=== PATIENT | female | born 1945 | race Caucasian/White ===

== ENCOUNTER 2016-10-27 12:56 | Inpatient (IN) | payer OTHER ==
--- NOTE | ~2016-10-27 | TEE ---
Transesophageal Echocardiogram [address] [place]. [address] NAME: MAE RANGEL : 49 STATUS : ADM IN PAT#: [id number] AGE: 71 ADM/REG DATE : 10/27/16 MR#: [id number] REPORT SERV DATE: 10/30/16 DICTATED BY: PHILL SANTORO DATE: 10/30/16 REPORT STATUS : Draft TRANSCRIBED BY: MODL DATE: 10/30/16 INDICATION: 71-year-old woman with atrial flutter. PROCEDURE: After questions were answered and consents were signed, the patient was sedated with propofol per Anesthesia. The probe was placed in mid esophagus, and images were obtained without difficulty. The patient did have episodes of mild desaturation which was managed carefully by Anesthesia and intermittent coughing. 2D INTERPRETATION: The left ventricular function was grossly normal, although the apex was poorly visualized. The mitral valve leaflets were minimally thickened, but opened adequately. No prolapse was noted. The left atrium was enlarged. There was spontaneous echo contrast in the atrium, but dense spontaneous echo contrast in the left atrial appendage which appeared almost to have a layering down into the apex of the appendage. Clot cannot be excluded. Doppler flows in the left atrial appendage were less than 20 cm/second. The interatrial septum was grossly intact. The right atrium grossly normal, tricuspid valve normal, aortic valve was trileaflet and sclerotic with probable moderate aortic stenosis based on morphology alone. The right-sided chambers were grossly normal. No significant pericardial effusion was noted. COLOR FLOW: Moderate tricuspid and mitral regurgitation with no significant aortic insufficiency. DOPPLER: Doppler flow velocities in left atrial appendage were less than 20 cm/sec. CONCLUSION: 1. DENSE SPONTANEOUS ECHO CONTRAST IN THE LEFT ATRIAL APPENDAGE WITH LAYERING CONCERNING FOR LEFT ATRIAL APPENDAGE THROMBUS. NO CARDIOVERSION PERFORMED. 2. PROBABLE MODERATE AORTIC STENOSIS BASED ON MORPHOLOGY. CONSIDER TRANSTHORACIC ECHO FOR COMPLETE EVALUATION. 3. MODERATE MITRAL AND TRICUSPID REGURGITATION. WO/MODL Phill Santoro M.D., Ph.D, F.A.C.C. / [id number] CC: MD Leonard Ivey M.D.
--- NOTE | ~2016-10-27 | DS ---
Discharge Summary [facility] [address] [place]. [address] NAME: MAE RANGEL : 49 STATUS : DIS IN PAT#: [id number] AGE: 71 ADM/REG DATE : 10/27/16 MR#: [id number] REPORT SERV DATE: 11/08/16 DICTATED BY: KATHRINE LANZA DATE: 11/07/16 REPORT STATUS : Draft TRANSCRIBED BY: MODRowdy DATE: 11/07/16 Data Collection from hospitalization DISCHARGE DIAGNOSIS(ES): 1. Atrial flutter. 2. Cgh-DF-[id number] myocardial infarction. 3. Congestive heart failure. 4. Aortic stenosis. CONSULTATIONS: None. PROCEDURES PERFORMED: 1. Cardiac catheterization, 10/29/2016. 2. Transesophageal echocardiogram, 10/30/2016. MEDICATIONS: Eliquis 5 mg twice daily, Halfprin 81 mg daily, Lipitor 40 mg daily, Lopressor 50 mg twice daily, Effexor XR 75 mg daily. CONDITION AT DISCHARGE: Upon discharge, she did appear to be doing well and had no complaints. DISPOSITION: She had been discharged home to continue an 1800-calorie ADA cardiac diet with activity as discussed. She was to follow up with Dr. Leonard King in two weeks, have an outpatient sleep study as directed, and follow up with myself as directed in two weeks. HOSPITAL COURSE: This 71-year-old female was well known to me. She had been admitted for two days lasting dyspnea with minimal activity and a fluttering sensation in her chest. She denied any chest pain whatsoever. She had some chronic low back pain. She was found to be in SVT, likely atrial flutter with heart rate 150 beats per minute with chronic right bundle branch block. Her troponin was mildly elevated at 0.4. Chest x-ray had shown some fluid overload with BNP elevated to 748. She had received intravenous Lasix in the emergency room, IV Cardizem, and IV heparin. She had been comfortable lying flat in the bed following this. She denied any recent chest pain or palpitation except the last three days' worth syncope. Of note, she had a history of SVT in the past documented on Holter monitor in 2015 when she had rate-related left bundle-branch block with underlying incomplete left bundle- branch block. She was status post four-vessel CABG by Dr. Washington in 04/2016 with right carotid endarterectomy and also 04/[address] Squires. She had some fgfm-qo-rbungsnm aortic valve stenosis, likely bicuspid aortic valve, followed clinically by myself, which was felt to be asymptomatic with EF 60%. She had a remote history of smoking and denied any other symptoms. She denied any lower extremity edema and ambulated without any difficulty. She was admitted for further evaluation and treatment. Upon admission to the hospital, she had been placed on cardiovascular heparin drip. She had also been placed on electrolyte replacement protocol. She was begun on a low sodium 1800-calorie diabetic diet. She was placed on fluid restriction to less than 2 L per day. She was begun on IV Cardizem and heparin in the emergency room as above. She had also been placed on sliding scale insulin level 2. Following the day of admission, she had no complaints of chest pain. Her heart rate had been up to 77, her blood pressure was at 132/60, she was afebrile. On 10/29/2016, she continued to do well and had no complaints of shortness of breath or chest pain Discharge Summary [address] [address] NAME: MAE RANGEL : 47 STATUS : DIS IN PAT#: [id number] AGE: 71 ADM/REG DATE : 10/27/16 MR#: [id number] REPORT SERV DATE: 11/08/16 DICTATED BY: KATHRINE LANZA DATE: 11/07/16 REPORT STATUS : Draft TRANSCRIBED BY: LANNY DATE: 11/07/16 overnight. She was in atrial flutter on telemetry with a 4:1 AV block noted. She did undergo the above cardiac catheterization. She did tolerate this well. She was begun on Eliquis and was to undergo a transesophageal echocardiogram. She had also undergone diabetic education. On 10/30/2016, she did undergo the above transesophageal echocardiogram. She tolerated this well. Her metoprolol was increased to 50 mg twice daily. She did continue to do well and had no new complaints noted. Due to her stable condition, she was then discharged on 10/31/2016 with the above instructions. Information collected by: Jv TinsleyI.T. I submit the above information as my discharge summary. LION/LANNY Kathrine Lanza MD / [id number] CC: MD Leonard Ivey M.D.
--- NOTE | ~2016-10-27 | HP ---
History And Physical [id number] [facility] [place]. [address] NAME: MAE RANGEL : 47 STATUS : ADM IN PAT#: [id number] AGE: 71 ADM/REG DATE : 10/27/16 MR#: [id number] REPORT SERV DATE: 10/27/16 DICTATED BY: LAVERNE VEGA DATE: 10/27/16 REPORT STATUS : Draft TRANSCRIBED BY: MODL DATE: 10/27/16 DATE OF ADMISSION: 10/27/2016 CARDIOLOGY H AND P REFERRING: Erick Roy IV, MD, in the emergency room. REFERRING REASON: SVT with elevated troponin and dyspnea. HISTORY OF PRESENT ILLNESS: This is a pleasant 71 years old white female, well known to Dr. Jose Luis Lanza from [facility], who has been admitted for 2 days lasting dyspnea with minimal activity and fluttering sensation in the chest. She denied any chest pain, whatsoever. She has some chronic low back pain. She was found to be in SVT likely atrial flutter with heart rate 150 beats per minute with chronic right bundle-branch block. Her troponin was mildly elevated at 0.4. The chest x-ray shows some fluid overload with BNP elevated to 748. The patient received intravenous Lasix in the emergency room, IV Cardizem, and IV heparin. She is now comfortable lying flat in the bed. She denied any recent chest pain or palpitation except the last three days or syncope. Of note, she has a history of SVT in the past documented on Holter monitoring in 2015 when she had rate-related left bundle-branch block with underlying incomplete left bundle-branch block. She is status post 4-vessel CABG by Dr. Washington in April 2016 with right carotid endarterectomy in also April [address] Squires. She has some mild to moderate aortic valve stenosis, likely bicuspid aortic valve, followed clinically by Dr. Lanza which was felt to be asymptomatic with EF 60%. She has a remote history of smoking and denied any other symptoms. She denies any lower extremity edema and ambulates without any difficulties. The rest of the review of systems is negative. PAST MEDICAL HISTORY: 1. Coronary artery disease with history of 4-vessel CABG by Dr. Washington in April 2016. 2. Peripheral artery disease with right carotid endarterectomy by Dr. Squires in April 2016. 3. Hypertension. 4. Diabetes mellitus. 5. History of smoking. 6. Mild to moderate aortic valve stenosis, likely a bicuspid aortic valve by echocardiogram in April 2016 with ejection fraction of 60%. 7. History of SVT. 8. Rate dependent left bundle-branch block. ALLERGIES: NO KNOWN DRUG ALLERGIES. SOCIAL HISTORY: The patient is . She lives independently. Quit smoking 8 months ago. Smoked for 40 years, 1 pack a day. Denies drinking alcohol or using street drugs. She is ambulating without any difficulties. History And Physical [address] [address] NAME: MAE RANGEL : 47 STATUS : ADM IN [facility]#: [id number] AGE: 71 ADM/REG DATE : 10/27/16 MR#: [id number] REPORT SERV DATE: 10/27/16 DICTATED BY: LAVERNE VEGA DATE: 10/27/16 REPORT STATUS : Draft TRANSCRIBED BY: LANNY DATE: 10/27/16 FAMILY HISTORY: Negative for sudden cardiac deaths or premature coronary artery disease in the family. PHYSICAL EXAMINATION: GENERAL: No acute distress. VITAL SIGNS: Blood pressure 175/76, heart rate 150, regular. HEENT: Pupils reactive to light and accommodation. Moist mucosa membrane. NECK: No JVD. Normal carotid upstroke. No carotid bruits. LUNGS: Decreased breath sounds observed with occasional crackles at the bases. ABDOMEN: Obese, distended, nontender. CORONARY: Normal S1, S2. No S3 or S4. No significant rub or murmurs. EXTREMITIES: No edema. Pedal pulses strong and equal bilaterally. SKIN: Warm with normal turgor. MUSCULOSKELETAL: No kyphosis. NEURO/PSY: Alert and oriented. Nonfocal. DATA: CBC remarkable for mild leukocytosis 13,000 with left shift. Creatinine 1.5, BUN 22. Nonfasting glucose 169. Troponin 0.41. TSH normal 1.5. BNP 748. Chest x-ray, fluid overload with history of CABG. Electrocardiogram revealed SVT likely atrial flutter with left bundle-branch block morphology, heart rate 151 beats per minute. ASSESSMENT AND PLAN: 1. Fluid overload with likely underlying diastolic dysfunction. 2. SVT likely atrial flutter. 3. Elevated troponin, likely demand ischemia. 4. Coronary artery disease with history of 4-vessel CABG in 2016. 5. Peripheral artery disease, currently stable. 6. History of a documented SVT in the past. 7. Mild to moderate aortic valve stenosis, currently asymptomatic. The patient will be admitted to monitored bed. She is going to be on fluid restriction less than 2 L a day, low-sodium diet, and diabetic diet. We will gently diurese her for kidney function closely. We will continue intravenous heparin and Cardizem. In case that her cardiac enzymes will go up, we may need to consider coronary arteriogram on Saturday. Multiple questions answered. No immediate plan for echocardiogram at the present time. The patient is comfortable now and less likely her presentation represents acute coronary syndrome. ERLIN/LANNY Laverne Vega M.D. / [id number] History And Physical [address] [address] NAME: MAE RANGEL Jacquelyn : 49 STATUS : ADM IN PAT#: [id number] AGE: 71 ADM/REG DATE : 10/27/16 MR#: [id number] REPORT SERV DATE: 10/27/16 DICTATED BY: LAVERNE VEGA DATE: 10/27/16 REPORT STATUS : Draft TRANSCRIBED BY: LANNY DATE: 10/27/16 CC: MD Leonard Ivey M.D.
[2016-10-27 11:40] LABS: BASOPHILS 0.2 %; BASOPHILS ABSOLUTE 0.03 10/3/uL (0.0-0.16); EOSINOPHILS 0.2 %; EOSINOPHILS ABSOLUTE 0.03 10/3/uL (0.0-0.53); IMMATURE GRANULOCYTES 0.3 %; IMMATURE GRANULOCYTES ABSOLUTE 0.04 10/3/uL (0.0-0.11); LYMPHOCYTES 15.8 %; LYMPHOCYTES ABSOLUTE 2.13 10/3/uL (0.67-4.30); MEAN CORPUS HGB CONC 33.2 g/dL (32.0-36.0); MEAN CORPUSCULAR HEMOGLOB 29.8 pg (26.0-34.0); MEAN CORPUSCULAR VOLUME 89.8 fL (80-100); MONOCYTES 4.9 %; MONOCYTES ABSOLUTE 0.66 10/3/uL (0.21-1.20); NEUTROPHILS 78.6 %; PLATELET COUNT 288 10/3/uL (150-400); RBC DISTRIBUTION WIDTH 14.6 % (12.0-16.0); WHITE BLOOD CELLS 13.5 10/3/uL (4.5-10.5)
[2016-10-27 11:43] LABS: HEMATOCRIT 37.1 % (36.0-48.0); HEMOGLOBIN 12.3 g/dL (12.0-16.0); MANUAL DIFF NO %; RED CELL COUNT 4.13 10/6/uL (4.0-5.6)
[2016-10-27 11:47] LABS: INTERNATIONAL NORMAL RATI 1.2 UNITS (-); PROTIME (NOT ORD) 14.9 SEC (12.0-14.5)
[2016-10-27 11:48] LABS: PARTIAL THROMBO TIME 41.3 SEC (22.5-37.2)
[2016-10-27 11:57] LABS: BUN (BLOOD UREA NITROGEN) 22 MG/DL (6-23); CALCIUM, SERUM 9.3 MG/DL (8.5-10.4); CHLORIDE, SERUM 102 MMOL/L (96-112); CO2 (CARBON DIOXIDE) 29 MMOL/L (24-34); CREATININE 1.51 MG/DL (0.55-1.02); GFR AFRICAN AMERICAN 40 ML/MIN (>=60); GFR NON AFRICAN AMERICAN 35 ML/MIN (>=60); GLUCOSE, SERUM 169 MG/DL (60-99); POTASSIUM, SERUM 4.5 MMOL/L (3.5-5.3); SODIUM, SERUM 138 MMOL/L (135-148)
[2016-10-27 11:58] LABS: CHEST PAIN PROFILE TAT 0 Hrs 22 Mins; TROPONIN I 0.41 NG/ML (<0.05)
[~2016-10-27 12:56] MED LIST: ASAB PO; CHANTIX1 PO; EFFEXXR75 PO; GLUCOTROL5 PO; HALF81 PO; LIPITOR40 PO; LOP25 PO; PLAVIX PO; PRIN10 PO; VITC500 PO
[2016-10-28 05:10] LABS: BASOPHILS 0.5 %; BASOPHILS ABSOLUTE 0.05 10/3/uL (0.0-0.16); EOSINOPHILS 3.5 %; EOSINOPHILS ABSOLUTE 0.35 10/3/uL (0.0-0.53); HEMATOCRIT 34.2 % (36.0-48.0); HEMOGLOBIN 11.4 g/dL (12.0-16.0); IMMATURE GRANULOCYTES 0.3 %; IMMATURE GRANULOCYTES ABSOLUTE 0.03 10/3/uL (0.0-0.11); LYMPHOCYTES 33.9 %; LYMPHOCYTES ABSOLUTE 3.39 10/3/uL (0.67-4.30); MEAN CORPUS HGB CONC 33.3 g/dL (32.0-36.0); MEAN CORPUSCULAR HEMOGLOB 29.8 pg (26.0-34.0); MEAN CORPUSCULAR VOLUME 89.3 fL (80-100); MEAN PLATELET VOLUME 10.2 fL (9.2-13.0); NEUTROPHILS 55.8 %; NEUTROPHILS ABSOLUTE 5.58 10/3/uL (2.02-8.40); PLATELET COUNT 266 10/3/uL (150-400); RBC DISTRIBUTION WIDTH 14.6 % (12.0-16.0); RED CELL COUNT 3.83 10/6/uL (4.0-5.6)
[2016-10-28 05:11] LABS: MANUAL DIFF NO %
[2016-10-28 05:20] LABS: BUN (BLOOD UREA NITROGEN) 22 MG/DL (6-23); CALCIUM, SERUM 8.8 MG/DL (8.5-10.4); CHLORIDE, SERUM 105 MMOL/L (96-112); CO2 (CARBON DIOXIDE) 27 MMOL/L (24-34); CREATININE 1.25 MG/DL (0.55-1.02); GFR AFRICAN AMERICAN 51 ML/MIN (>=60); GFR NON AFRICAN AMERICAN 44 ML/MIN (>=60); POTASSIUM, SERUM 3.8 MMOL/L (3.5-5.3); SODIUM, SERUM 141 MMOL/L (135-148)
[2016-10-28 05:23] LABS: GLUCOSE, SERUM 129 MG/DL (60-99); TROPONIN I 0.68 NG/ML (<0.05)
[2016-10-30 04:32] LABS: BASOPHILS 0.5 %; BASOPHILS ABSOLUTE 0.04 10/3/uL (0.0-0.16); EOSINOPHILS 4.5 %; EOSINOPHILS ABSOLUTE 0.39 10/3/uL (0.0-0.53); HEMATOCRIT 33.1 % (36.0-48.0); HEMOGLOBIN 10.8 g/dL (12.0-16.0); IMMATURE GRANULOCYTES 0.2 %; IMMATURE GRANULOCYTES ABSOLUTE 0.02 10/3/uL (0.0-0.11); LYMPHOCYTES 25.1 %; LYMPHOCYTES ABSOLUTE 2.18 10/3/uL (0.67-4.30); MEAN CORPUS HGB CONC 32.6 g/dL (32.0-36.0); MEAN CORPUSCULAR HEMOGLOB 29.4 pg (26.0-34.0); MEAN CORPUSCULAR VOLUME 90.2 fL (80-100); MEAN PLATELET VOLUME 9.6 fL (9.2-13.0); MONOCYTES 5.8 %; NEUTROPHILS 63.9 %; NEUTROPHILS ABSOLUTE 5.54 10/3/uL (2.02-8.40); PLATELET COUNT 292 10/3/uL (150-400); RBC DISTRIBUTION WIDTH 14.4 % (12.0-16.0); RED CELL COUNT 3.67 10/6/uL (4.0-5.6); WHITE BLOOD CELLS 8.7 10/3/uL (4.5-10.5)
[2016-10-30 04:33] LABS: MANUAL DIFF NO %
[2016-10-30 04:41] LABS: BUN (BLOOD UREA NITROGEN) 19 MG/DL (6-23); CALCIUM, SERUM 8.7 MG/DL (8.5-10.4); CHLORIDE, SERUM 108 MMOL/L (96-112); CO2 (CARBON DIOXIDE) 26 MMOL/L (24-34); CREATININE 1.03 MG/DL (0.55-1.02); GFR AFRICAN AMERICAN 64 ML/MIN (>=60); GFR NON AFRICAN AMERICAN 55 ML/MIN (>=60); GLUCOSE, SERUM 119 MG/DL (60-99); POTASSIUM, SERUM 4.3 MMOL/L (3.5-5.3); SODIUM, SERUM 142 MMOL/L (135-148)
[2016-10-31 04:19] LABS: BASOPHILS 0.5 %; BASOPHILS ABSOLUTE 0.04 10/3/uL (0.0-0.16); EOSINOPHILS 4.2 %; EOSINOPHILS ABSOLUTE 0.36 10/3/uL (0.0-0.53); HEMATOCRIT 33.5 % (36.0-48.0); IMMATURE GRANULOCYTES 0.2 %; IMMATURE GRANULOCYTES ABSOLUTE 0.02 10/3/uL (0.0-0.11); LYMPHOCYTES 29.7 %; LYMPHOCYTES ABSOLUTE 2.55 10/3/uL (0.67-4.30); MANUAL DIFF NO %; MEAN CORPUS HGB CONC 32.8 g/dL (32.0-36.0); MEAN CORPUSCULAR HEMOGLOB 29.5 pg (26.0-34.0); MEAN CORPUSCULAR VOLUME 89.8 fL (80-100); MEAN PLATELET VOLUME 9.8 fL (9.2-13.0); MONOCYTES 5.5 %; MONOCYTES ABSOLUTE 0.47 10/3/uL (0.21-1.20); NEUTROPHILS 59.9 %; NEUTROPHILS ABSOLUTE 5.15 10/3/uL (2.02-8.40); PLATELET COUNT 312 10/3/uL (150-400); RBC DISTRIBUTION WIDTH 14.3 % (12.0-16.0); RED CELL COUNT 3.73 10/6/uL (4.0-5.6); WHITE BLOOD CELLS 8.6 10/3/uL (4.5-10.5)
[2016-10-31 04:39] LABS: BUN (BLOOD UREA NITROGEN) 16 MG/DL (6-23); CALCIUM, SERUM 8.9 MG/DL (8.5-10.4); CHLORIDE, SERUM 109 MMOL/L (96-112); CO2 (CARBON DIOXIDE) 29 MMOL/L (24-34); GFR AFRICAN AMERICAN 59 ML/MIN (>=60); GFR NON AFRICAN AMERICAN 51 ML/MIN (>=60); GLUCOSE, SERUM 115 MG/DL (60-99); POTASSIUM, SERUM 4.6 MMOL/L (3.5-5.3); SODIUM, SERUM 142 MMOL/L (135-148)
[2016-10-31] MEDS ORDERED: ELIQUIS 5 MG TAB5 MG PO (18:49)
[2016-10-31] MEDS ORDERED: LOP50 PO (18:50)
== END 2016-10-31 20:32 | disposition home or self-care (01) | DRG 280 ==
LOC: ER 12:56 → 2SO 13:29
PROVIDERS: Emergency Medicine; Internal Medicine Cardiovascular Disease
PROC: 4A023N7 Measurement of Cardiac Sampling and Pressure, Left Heart, Percutaneous Approach (ICD-10-PCS; principal; 2016-10-27)
PROC: B2151ZZ Fluoroscopy of Left Heart using Low Osmolar Contrast (ICD-10-PCS; 2016-10-27)
PROC: B2131ZZ Fluoroscopy of Multiple Coronary Artery Bypass Grafts using Low Osmolar Contrast (ICD-10-PCS; 2016-10-27)
PROC: B2181ZZ Fluoroscopy of Left Internal Mammary Bypass Graft using Low Osmolar Contrast (ICD-10-PCS; 2016-10-27)
PROC: B2111ZZ Fluoroscopy of Multiple Coronary Arteries using Low Osmolar Contrast (ICD-10-PCS; 2016-10-27)
PROC: B246ZZ4 Ultrasonography of Right and Left Heart, Transesophageal (ICD-10-PCS; 2016-10-30)
PROC: 5A2204Z Restoration of Cardiac Rhythm, Single (ICD-10-PCS; 2016-10-30)
DX: I21.4 Non-ST elevation (NSTEMI) myocardial infarction (principal); J96.21 Acute and chronic respiratory failure with hypoxia; I50.31 Acute diastolic (congestive) heart failure; E11.51 Type 2 diabetes mellitus with diabetic peripheral angiopathy without gangrene; I48.92 Unspecified atrial flutter; I47.1 Supraventricular tachycardia; I11.0 Hypertensive heart disease with heart failure; G89.29 Other chronic pain; M54.9 Dorsalgia, unspecified; I25.10 Atherosclerotic heart disease of native coronary artery without angina pectoris; I44.7 Left bundle-branch block, unspecified; I73.9 Peripheral vascular disease, unspecified; I35.0 Nonrheumatic aortic (valve) stenosis; E78.00 Pure hypercholesterolemia, unspecified; Z95.1 Presence of aortocoronary bypass graft; Z87.891 Personal history of nicotine dependence
CPT/HCPCS: 71010; 80048; 82962; 83735; 83880; 84443; 84484; 85025; 85347; 85610; 85730; 93005; 93312; 93320; 93325; 93459; 96374; 96375; 99152; 99153; 99285; A9270-GY; C1769; C1894; J2250; J3010; Q9967